=== PATIENT | male | born 1955 ===

== ENCOUNTER 2019-08-11 16:44 | Outpatient (CLI) | payer OTHER ==
[2019-08-11 16:04] LABS: Anion Gap 16 mmol/L (10-20); BUN (Urea Nitrogen) 15 mg/dL (8.4-25.7); Calc. Creatinine Clearance 0 mL/min (70-130); Calcium 9.4 mg/dL (7.8-10.44); Carbon Dioxide 26 mmol/L (23-31); Chloride 102 mmol/L (98-107); Estimated GFR-MDRD Greater than 90; Glucose 134 mg/dL (80-115); Potassium 4.7 mmol/L (3.5-5.1); Sodium 139 mmol/L (136-145)
== END 2019-08-11 16:45 | disposition home or self-care (01) ==
LOC: NAV LAB 16:44 → EDSTATUS 16:45 → NAV LAB 16:45
PROVIDERS: ATTEND Nurse Practitioner Adult Health
DX: I10 Essential (primary) hypertension (principal)
CPT/HCPCS: 80048